=== PATIENT | female | born 1960 | race Caucasian/White ===

== ENCOUNTER 2017-02-13 10:11 | Emergency (ER) | payer OTHER ==
[2017-02-13 10:25] VITALS: TEMP 98.1; BMI 28.5
--- NOTE | 2017-02-13 10:39 | PDOC ---
History of Present Illness - General History Source: Patient, Primary Care Provider Exam Limitations: No Limitations - History of Present Illness Initial Comments: 02/13/17 11:28 The patient is a 56 year old female with history of HIV ( CD4 828, viral load < 20, checked on 12/20) and hyperlipidemia who presents to the ED with complaints of dizziness for the past two days. She states that her symptoms began while at the pool yesterday and thought she was dehydrated, however her symptoms has persisted. She qualifies her symptoms as a room spinning sensation and feels like she has fluid in her ears and is accompanied by nausea but no vomiting. She denies any modifying factors. She states that she ate dinner last night and a banana this morning. The patient denies recent illness, fever, chills, diarrhea, cough, shortness of breath, chest pain, or urinary symptoms. The patient states she went to her PCP initially and was instructed to go to the ER. PCP: Shaina Gonzales Surgical Hx: Hysterectomy, rotator cuff surgery Allergies: Penicillin and clarithromycin <Ryann Zelaya - Last Filed: 02/13/17 12:15> <Roberto Paniagua - Last Filed: 02/13/17 15:11> - General Chief Complaint: Lightheaded Stated Complaint: Nausea Time Seen by Provider: 02/13/17 10:32 Past History <Ryann Zelaya - Last Filed: 02/13/17 12:15> - Past Medical History Anemia: No Asthma: No Cancer: No Cardiac Disorders: No CVA: No COPD: No CHF: No Dementia: No Diabetes: No GI Disorders: No Disorders: No HTN: No Hypercholesterolemia: Yes HIV: Yes Liver Disease: No Seizures: No Thyroid Disease: No - Surgical History Orthopedic Surgery: Yes (NICK KNEE ARTHTOSCOPIES) - Psycho/Social/Smoking Cessation Hx Anxiety: No Suicidal Ideation: No Smoking History: Never smoked Have you smoked in the past 12 months: No If you are a former smoker, when did you quit?: 17YRS Cigars Per Day: 0 Information on smoking cessation initiated: No Hx Alcohol Use: No Drug/Substance Use Hx: No Substance Use Type: None Hx Substance Use Treatment: No <Roberto Paniagua - Last Filed: 02/13/17 15:11> - Past Medical History Allergies/Adverse Reactions: Allergies Allergy/AdvReac Type Severity Reaction Status Date / Time clarithromycin [From Biaxin] Allergy Severe Verified 02/13/17 10:22 Penicillins Allergy Severe Rash Verified 02/13/17 10:22 Home Medications: Ambulatory Orders Aspirin [Aspirin EC] 1 tab PO DAILY 08/23/16 Efavirenz/Emtricitab/Tenofovir [Atripla Tablet -] 1 tab PO HS #30 tab 12/20/16 Fish Oil/Borage/Flax/Om3,6,9#1 [[place] 3-6-9 1,200 mg Softgel] 1,200 mg PO BID # 60 capsule 12/20/16 Ibuprofen 800 mg PO DAILY PRN #30 tablet MDD 1 12/20/16 Review of Systems - Review of Systems Able to Perform ROS?: Yes Comments:: 02/13/17 11:29 GENERAL/CONSTITUTIONAL: No fever or chills. No weakness. HEAD, EYES, EARS, NOSE AND THROAT: No change in vision. No ear pain or discharge. No sore throat. CARDIOVASCULAR: No chest pain or shortness of breath. RESPIRATORY: No cough, wheezing, or hemoptysis. GASTROINTESTINAL: No nausea, vomiting, diarrhea or constipation. GENITOURINARY: No dysuria, frequency, or change in urination. MUSCULOSKELETAL: No joint or muscle swelling or pain. No neck or back pain. SKIN: No rash NEUROLOGIC: Present: dizziness No headache, loss of consciousness, or change in strength/sensation. ENDOCRINE: No increased thirst. No abnormal weight change. HEMATOLOGIC/LYMPHATIC: No anemia, easy bleeding, or history of blood clots. ALLERGIC/IMMUNOLOGIC: No hives or skin allergy. All Other Systems: Reviewed and Negative <Ryann Zelaya - Last Filed: 02/13/17 12:15> *Physical Exam - Vital Signs Last Vital Signs Temp Pulse Resp BP Pulse Ox 98.1 F 71 20 143/83 100 02/13/17 10:22 02/13/17 10:22 02/13/17 10:22 02/13/17 10:22 02/13/17 10:22 - Physical Exam Comments: 02/13/17 11:30 GENERAL: Awake, alert, and fully oriented, in no acute distress HEAD: No signs of trauma EYES: PERRLA, EOMI, sclera anicteric, conjunctiva clear ENT: Auricles normal inspection, hearing grossly normal, nares patent, oropharynx clear without exudates. Moist mucosa NECK: Normal ROM, supple, no lymphadenopathy, JVD, or masses LUNGS: Breath sounds equal, clear to auscultation bilaterally. No wheezes, and no crackles HEART: Regular rate and rhythm, normal S1 and S2, no murmurs, rubs or gallops ABDOMEN: Soft, nontender, normoactive bowel sounds. No guarding, no rebound. No masses EXTREMITIES: Normal range of motion, no edema. No clubbing or cyanosis. No cords, erythema, or tenderness NEUROLOGICAL: Cranial nerves II through XII grossly intact. Normal speech, normal gait SKIN: Warm, Dry, normal turgor, no rashes or lesions noted. <Ryann Zelaya - Last Filed: 02/13/17 12:15> - Vital Signs Last Vital Signs Temp Pulse Resp BP Pulse Ox 98.1 F 71 20 143/83 100 02/13/17 10:22 02/13/17 10:22 02/13/17 10:22 02/13/17 10:22 02/13/17 10:22 <Roberto Paniagua - Last Filed: 02/13/17 15:11> Heart Score/ECG Review - ECG Intrepretation Comment:: 02/13/17 11:30 ECG obtained at 10:55 Normal sinus at 65 nonspecific T wave abnormality. <GarciaRyann - Last Filed: 02/13/17 12:15> ED Treatment Course - LABORATORY CBC & Chemistry Diagram: 02/13/17 11:03 02/13/17 11:03 - RADIOLOGY Radiograph Interpretation: 02/13/17 12:16 Chest x-ray as reviewed by Dr. Guerra reports no active pulmonary disease. <Ryann Zelaya - Last Filed: 02/13/17 12:15> - LABORATORY CBC & Chemistry Diagram: 02/13/17 11:03 02/13/17 11:03 <Roberto Paniagua - Last Filed: 02/13/17 15:11> *DC/Admit/Observation/Transfer - Attestations Scribe Attestion: 02/13/17 11:30 Documentation prepared by Ryann Zelaya, acting as medical accounting clerk for Roberto Paniagua DO. <Ryann Zelaya - Last Filed: 02/13/17 12:15> - Discharge Dispostion Admit: No - Attestations Physician Attestion: 02/13/17 10:33 I, Dr. Roberto Paniagua, attest that this document has been prepared under my direction and personally reviewed by me in its entirety. I further attest, that it accurately reflects all work, treatment, procedures and medical decision -making performed by me. <Roberto Paniagua - Last Filed: 02/13/17 15:11> Diagnosis at time of Disposition: Intermittent lightheadedness, Anxiety, Worried well - Discharge Dispostion Disposition: HOME Condition at time of disposition: Good - Referrals Referrals: Sonia Gonzales TENTS ASSEMBLER [Primary Care Provider] - - Patient Instructions Printed Discharge Instructions: Benign Paroxysmal Positional Vertigo Additional Instructions: REBECA- All of your tests are stone cold normal. You do not have any vascular anomolies or malformations, or aneurysms in your brain. Follow up with your doctor later this week Return to us if any problems Best- Dr. Roberto Paniagua
[2017-02-13 11:21] LABS: BASOPHIL 0.6 % (0-2.0); EOSINOPHIL 1.2 % (0-4.5); MCH 32.2 pg (25.7-33.7); MCHC 34.4 g/dl (32.0-36.0); MEAN CELL VOLUME 93.6 fl (80-96); MEAN PLT VOLUME 9.5 fl (7.5-11.1); NEUTROPHILS 54.4 % (42.8-82.8); PLATELET COUNT 198 K/MM3 (134-434); WHITE BLOOD COUNT 5.3 K/mm3 (4.0-10.0)
[2017-02-13 11:22] LABS: URINE APPEARANCE CLEAR; URINE BILIRUBIN NEGATIVE (NEGATIVE); URINE BLOOD NEGATIVE (NEGATIVE); URINE COLOR STRAW; URINE GLUCOSE (UA) NEGATIVE (NEGATIVE); URINE KETONE NEGATIVE (NEGATIVE); URINE LEUK ESTERASE NEGATIVE (NEGATIVE); URINE NITRITE NEGATIVE (NEGATIVE); URINE PROTEIN NEGATIVE (NEGATIVE); URINE UROBILINOGEN NEGATIVE mg/dL (0.2-1.0)
--- NOTE | 2017-02-13 11:30 | EKG ---
Test Reason : Blood Pressure : / mmHG Vent. Rate : 065 BPM Atrial Rate : 065 BPM P-R Int : 150 ms QRS Dur : 074 ms QT Int : 410 ms P-R-T Axes : 049 050 096 degrees QTc Int : 426 ms NORMAL SINUS RHYTHM NONSPECIFIC T WAVE ABNORMALITY ABNORMAL ECG WHEN COMPARED WITH ECG OF 13-FEB-2017 08:19, NO SIGNIFICANT CHANGE WAS FOUND Confirmed by ELAINA AG MD ([id number]) on 02/13/2017 11:30:16 AM Referred By: Confirmed By:ELAINA AG MD
[2017-02-13 11:44] LABS: ALBUMIN 4.2 g/dl (3.4-5.0); ANION GAP 6 (8-16); BILIRUBIN,TOTAL 0.4 mg/dL (0.2-1.0); CALCIUM 9.3 mg/dL (8.5-10.1); CO2 30 mmol/L (21-32); CREATININE 0.9 mg/dL (0.55-1.02); GLUCOSE,RANDOM 94 mg/dL (74-106); SGOT/AST 27 U/L (15-37); SGPT/ALT 36 U/L (12-78); TOT PROT 7.6 g/dl (6.4-8.2)
[2017-02-13 11:47] LABS: ALK PHOS 132 U/L (45-117); CPK 178 IU/L (26-192); TROPONIN I < 0.02 ng/ml (0.00-0.05)
[2017-02-13 11:56] LABS: INR 1.05 (0.82-1.09); PROTHROMBIN TIME (PATIENT) 11.6 SEC (9.98-11.88)
[2017-02-13 15:30] VITALS: BP 133/84; PULSE 67
== END 2017-02-13 15:46 | disposition home or self-care (01) ==
LOC: JER 10:11
DX: H81.10 Benign paroxysmal vertigo, unspecified ear (principal); F41.9 Anxiety disorder, unspecified; Z21 Asymptomatic human immunodeficiency virus [HIV] infection status
CPT/HCPCS: 36415; 70450-TC; 70496-TC; 71010-TC; 80053; 81003; 82553; 84484; 84703; 85025; 85610; 93005; 93010; 99283-25; G0463-25

== ENCOUNTER 2017-12-20 05:38 | Day surgery (SDC) | payer OTHER ==
[2017-12-11 10:45] VITALS: BMI 28.3
--- NOTE | 2017-12-20 08:59 | HP ---
Satellite [facility] - Chief Complaint Chief Complaint: left shoulder pain - Past Medical History Allergies/Adverse Reactions: Allergies Allergy/AdvReac Type Severity Reaction Status Date / Time clarithromycin [From Biaxin] Allergy Severe Verified 12/20/17 10:30 Penicillins Allergy Severe Rash Verified 12/20/17 10:30 - Current Medications Current Medications: Home Medications Medication Instructions Recorded Atorvastatin Ca [Lipitor] 20 mg PO HS #30 tablet 09/29/17 Efavirenz/Emtricitab/Tenofovir 1 tab PO DAILY #30 tab 09/29/17 [Atripla Tablet -] Fish Oil/Borage/Flax/Om3,6,9 1 1,200 mg BID 12/20/17 Hydrocodone/Acetaminophen [[place] 1 each PO Q6H PRN #40 tablet MDD 4 12/20/17 5-325 Tablet] Ibuprofen 800 mg PO PRN PRN 12/20/17 Satellite Physical Exam - Physical Examination General Appearance: Well Nourished, Well Developed, Alert & Oriented x3 ENT: Clear Lung: Normal air movement Heart: Regular rate & rhythm Extremities: Other (left shoulder- + ttp, decr rom, + neer, + knox, nvi) Neurological: Intact, Alert, Oriented Satellite Impression/Plan - Impression/Plan Impression: left shoulder impingement, loose body Operative Procedure: left shoulder arthroscopy SAD, loose body removal, possible RCR Date to be Performed: 12/20/17
[2017-12-20] MEDS ORDERED: ROPIVACAINE HCL 0.5% 30ML VIAL ONE (11:02)
[2017-12-20] MEDS ORDERED: DEXAMETHASONE SOD PHOSPHATE/PF 10 MG/ML SDV ONE (11:02)
[2017-12-20] MEDS ORDERED: MIDAZOLAM HCL 2 MG/2 ML SINGLE DOSE VIAL ONE ×3 (11:03→13:24)
[2017-12-20] MEDS ORDERED: ONDANSETRON 4 MG/2 ML VIAL IVPUSH PRN (11:58)
[2017-12-20] MEDS ORDERED: oxyCODONE HCL 5 MG TABLET PO PRN (11:58)
[2017-12-20] MEDS ORDERED: LACTATED RINGERS SOLUTION 1,000 ML IV SCH (12:00)
[2017-12-20] MEDS ORDERED: ceFAZolin SODIUM 1 GM VIAL IVPB ONE (14:01)
--- NOTE | 2017-12-20 14:44 | OP ---
Operative Note - Note: Operative Date: 12/20/17 ([facility]) Pre-Operative Diagnosis: left shoulder impingement, failed anchor Operation: left shoulder arthroscopy with removal of hardware, bursectomy, DINH Post-Operative Diagnosis: Same as Pre-op Surgeon: Peter Gonzales [employer] Collection Clerk: Keith Cuellar Anesthesiologist/TIGHTENING MACHINE OPERATOR: Singh Bustillos Anesthesia: General, Local Specimens Removed: anchor Estimated Blood Loss (mls): 5 Operative Report Dictated: Yes
--- NOTE | 2017-12-20 16:39 | OP ---
DATE OF OPERATION: 12/20/2017 PREOPERATIVE DIAGNOSES: Left shoulder pain and loose hardware. POSTOPERATIVE DIAGNOSES: Left shoulder pain and loose hardware. PROCEDURES: Left shoulder arthroscopy, arthroscopic bursectomy, and removal of hardware, and manipulation under anesthesia. SURGEON: Peter Obrien MD HISTOLOGY SUPERVISOR: STEPHANIE Wing ANESTHESIOLOGIST: , CELLULAR TOWER CLIMBER ANESTHESIA: LMA anesthesia. A left interscalene block. DRAINS: None. COMPLICATIONS: None. SPECIMEN: Arthrex SwiveLock screw, polylactic acid. BLOOD LOSS: Minimal. BLOOD GIVEN: None. FLUID REPLACEMENT: 500 mL. INDICATIONS: This patient is a 57-year-old female with a preoperative diagnosis of a painful left shoulder and a broken screw. After understanding the potential risks, complications, alternatives and benefits of surgery versus nonsurgical treatment, the patient elected to undergo this procedure. PROCEDURE: The patient was brought to the operating room, a peripheral IV placed, and IV sedation given. A left interscalene block was performed. LMA anesthesia was induced. She was placed into the beach-chair position with ample padding throughout. The left upper extremity was prepped and draped in a sterile fashion. The bony landmarks were marked out with a marking pen. A posterior portal was established with a No. 15-scalpel blade and the arthroscope was introduced in the joint. Inside the joint, everything looked fine. The humeral head, glenoid, and glenoid labrum all looked fine. The labrum had a little bit of fraying. There was perhaps grade 1 at most arthritic change at the humeral head. The undersurface of the rotator cuff looked great. There were no tears. The biceps tendon looked good. Next, our attention turned to the subacromial space. A lateral portal was established under direct visualization using a spinal needle, a No. 15-scalpel blade, and a Green cannula. The patient had some bursitis, but no recurrent bone spurs. There was some scar tissue that had formed on the undersurface of the acromion, as expected. The ArthroCare wand and the straight shaver were used to do a subacromial bursectomy, removing the scar tissue, confirming there were no subacromial or subclavicular bony spurs. There was more bursitis laterally. This was also removed with the ArthroCare wand and shaver. At this point, we washed out the lateral gutter and indeed there was a broken, fragmented Arthrex polylactic acid SwiveLock screw. It was not attached to any suture. We removed it in a piecemeal fashion until there was no more. We irrigated it thoroughly and no other additional screw fragments were seen. Most of the subacromial bursectomy was in this area. We were able to directly visualize the top surface of the rotator cuff throughout its entirety in full abduction as well as internal and external rotation. There were no recurrent rotator cuff tears, everything else looked fine, and the top of the rotator cuff looked great. The area was again inspected. Nothing was seen. It was copiously irrigated and washed out. All instrumentation removed. Excess saline removed. The arthroscopy portal was closed with 3-0 nylon sutures. The area was then washed, dried, and covered with Aquacel dressing. She was put into a sling, extubated, and brought down out of the beach chair position. There were no complications during the case. She tolerated the procedure quite well. There was very minimal blood loss. She was brought to the ambulatory recovery room in stable condition. PETER OBRIEN M.D. [id number]
[2017-12-20 17:09] VITALS: BP 137/79; PULSE 80; TEMP 97.8
--- NOTE | 2017-12-22 17:33 | PATH ---
Surgical Pathology Report Patient Name: REBECA SOTO Med. Rec. #: [id number] /Age/Gender: 1960 (Age: 57) / F Account: [id number] Location: [facility] SURGICAL Taken: 12/20/2017 Received: 12/21/2017 Reported: 12/22/2017 Physicians: Peter Gonzales M.D. Specimen(s) Received A: HARDWARE LEFT SHOULDER B: SHAVINGS LEFT SHOULDER Clinical History Tear left shoulder Final Diagnosis A. HARDWARE LEFT SHOULDER, REMOVAL: MEDICAL HARWARE, GROSS EXAMINATION ONLY. B. LEFT SHOULDER SHAVINGS: FRAGMENTS OF FIBROCARTILAGINOUS TISSUE AND SYNOVIAL TISSUE WITH DEGENERATIVE CHANGE. UNREMARKABLE SKELETAL MUSCLE FRAGMENTS. Electronically Signed Kassie Arriaga M.D. Gross Description A. Received fresh labeled "hardware left shoulder," are 5 white fragments of possible plastic hardware ranging from 0.1-0.3 cm in greatest dimension. No soft tissue is present. No sections are submitted, gross only. B. Received in formalin, labeled "shavings left shoulder," is a 4.3 x 4.0 x 0.4 cm. aggregate of reyes-yellow soft tissue fragments. A account retention representative portion is submitted in one cassette. 12/21/201712/21/2017
== END 2017-12-20 17:00 | disposition home or self-care (01) ==
LOC: JASU-SURG 05:38
PROVIDERS: ATTEND Orthopaedic Surgery
PROC: 0RCK4ZZ Extirpation of Matter from Left Shoulder Joint, Percutaneous Endoscopic Approach (ICD-10-PCS; principal; 2017-12-20 12:00)
DX: T84.84XA Pain due to internal orthopedic prosthetic devices, implants and grafts, initial encounter (principal); M75.52 Bursitis of left shoulder